=== PATIENT | male | born 1960 | race Caucasian/White ===

== ENCOUNTER 2019-02-13 11:41 | Emergency (ER) | payer BC ==
[~2019-02-13] VITALS: Ht 172.7 cm; Wt 86.4 kg
[2019-02-13] MEDS ORDERED: LIPITOR 10MG10 MG PO (12:09)
[2019-02-13] MEDS ORDERED: FLOMAX 0.40.4 MG/CAP PO (12:09)
[2019-02-13] MEDS ORDERED: STIOLTO RESPIMAT4 GM IH (12:10)
[2019-02-13 12:30] LABS: COLLECTION METHOD CLEAN CATCH
[2019-02-13 12:36] LABS: PH 7 (5-8); SQUAMOUS EPITHELIAL None Seen /hpf; URINE APPEARANCE Clear; URINE BACTERIA None Seen /hpf; URINE BILIRUBIN Negative (NEGATIVE); URINE BLOOD Negative (NEGATIVE); URINE COLOR Straw; URINE GLUCOSE Negative (NEGATIVE); URINE KETONE Negative (NEGATIVE); URINE LEUKOCYTE ESTERASE Negative (NEGATIVE); URINE NITRATE Negative (NEGATIVE); URINE PROTEIN(semi-quant) Negative (NEGATIVE); URINE RBC None Seen /hpf; URINE UROBILINOGEN Negative (NEGATIVE)
[2019-02-13 12:43] LABS: BASO # 0.1 (0.0-0.2); BASO % 0.7 % (0.0-2.0); EOS # 0.1 (0.0-0.7); EOS % 0.8 % (0-4.0); GRAN # 7.7 (1.4-6.5); GRAN % 76.3 % (42.2-75.2); HEMATOCRIT 42.6 % (42.0-52.0); HEMOGLOBIN 14.4 g/dl (13.5-18.0); LYMPH # 1.5 (1.2-3.4); LYMPH % 14.6 % (20.0-51.0); MEAN CELL VOLUME 89 fl (80.0-100.0); MEAN CORPUSCULAR HEMOGLOBIN 30 pg (27.0-31.0); MEAN CORPUSCULAR HGB CONC 34 g/dl (33.0-37.0); MEAN PLATELET VOLUME 9.7 fl (7.4-10.4); MONO # 0.7 (0.1-0.6); MONO % 7.2 % (1.7-9.3); PLATELET COUNT 280 K/mm3 (130-400); RED BLOOD COUNT 4.81 M/mm3 (4.20-5.60); REDCELL DISTRIBUTION WIDTH-CV 12.9 % (11.5-14.5)
[2019-02-13 12:54] LABS: ALANINE AMINOTRANSFERASE 28 U/L (21-72); ALBUMIN 3.8 gm/dL (3.5-5.0); ALKALINE PHOSPHATASE 89 U/L (50-136); ANION GAP 9 mmol/L (7-16); AST,SGOT 25 U/L (15-37); BILIRUBIN,TOTAL 0.8 mg/dL (0.0-1.0); BLOOD UREA NITROGEN 13 mg/dL (9-20); CARBON DIOXIDE 24 mmol/L (22-30); CHLORIDE 108 mmol/L (98-107); CREATININE, serum 0.93 (0.66-1.25); GLUCOSE 111 mg/dL (74-106); LIPASE 312 U/L (23-300); POTASSIUM 4.5 mmol/L (3.4-5.0); SODIUM 141 mmol/L (137-145); TOTAL PROTEIN 6.7 gm/dL (6.4-8.2)
[2019-02-13 12:56] LABS: C-REACTIVE PROTEIN < 0.5 mg/dL (0.0-0.9)
[2019-02-13 13:03] LABS: TROPONIN-I < 0.012 ng/mL (0.000-0.035)
[2019-02-13] MEDS ORDERED: PROTONIX 40MG T40 MG PO (15:15)
[2019-02-13 15:36] VITALS: BP 132/67; PULSE 62; TEMP 98
== END 2019-02-13 15:38 | disposition home or self-care (01) ==
LOC: COL.ER 11:41
PROVIDERS: Family Medicine
DX: R10.13 Epigastric pain (principal); R19.7 Diarrhea, unspecified; R11.2 Nausea with vomiting, unspecified; E86.0 Dehydration; J44.9 Chronic obstructive pulmonary disease, unspecified; F12.90 Cannabis use, unspecified, uncomplicated; Z90.89 Acquired absence of other organs
CPT/HCPCS: J2405; J7030